=== PATIENT | female | born 1970 | race Caucasian/White ===

== ENCOUNTER 2016-10-15 07:52 | Outpatient (CLI) | payer OTHER ==
[~2016-10-15 07:52] MED LIST: ACETAMINOPHEN325 MG PO; HYOSCYAMINE0.125 M2 PO; IBUPROFEN600 MG PO; METFORMIN HCL500 MG PO; PERCOCET1 TA1 PO; PHENTERMINE HCL15 MG PO; TOPAMAX25 MG PO
--- NOTE | 2016-10-15 14:24 | DIAGNOSTIC IMAGING REPORT ---
PROCEDURE: MG BILATERAL SCREENING W/CAD INDICATION: Screening. Family history breast carcinoma (cousin, mother). TECHNIQUE: Bilateral CC and MLO digital views. COMPARISON: Compared to 08/15/2015, 07/07/2014, and 07/30/2012. FINDINGS: Computer-aided detection applied. Mildly dense. No change. IMPRESSION: 1. Negative mammogram. RESULT CODE: 1- Negative. A. A negative report should not delay biopsy if a dominant or clinically suspicious mass is present. 10-15% of cancers are not identified by x-ray. B. A negative report may reinforce clinical impression. C. Adenosis and dense breasts may obscure an underlying neoplasm. D. False positive reports average 6-10%. E.. A yearly screening mammogram is recommended. A reminder letter will be scheduled.
== END 2016-10-15 23:00 ==
LOC: MAM SRH 07:52
DX: Z12.31 Encounter for screening mammogram for malignant neoplasm of breast (principal)

== ENCOUNTER 2017-02-25 17:32 | Outpatient (CLI) | payer OTHER ==
--- NOTE | 2017-02-25 19:06 | DIAGNOSTIC IMAGING REPORT ---
PROCEDURE: XR LUMBAR SPINE 5 VIEWS INDICATION: lower back and leg pain TECHNIQUE: Five views of the lumbar spine including bilateral obliques. COMPARISON: None. FINDINGS: Five lumbar-type vertebral bodies are present. Normal vertebral body height without fracture. Degenerative endplate spurring in the lower thoracic spine. Normal AP and transverse alignment. Mild disc height loss at L4-5 posteriorly, and L5-S1. The visible osseous pelvis and bowel gas pattern are normal. Fallopian tube wires are present. Oblique views demonstrate no pars defects. Mild facet hypertrophy and sclerosis at the L5-S1 level. IMPRESSION: 1. Intact lumbar spine. 2. Mild degenerative changes as described.
== END 2017-02-25 23:00 ==
LOC: XR SRH 17:32
DX: M79.606 Pain in leg, unspecified (principal); M54.5 Low back pain